=== PATIENT | male | born 1965 | race Caucasian/White ===

== ENCOUNTER 2017-10-02 14:05 | Emergency (ER) | payer BC ==
[~2017-10-02] VITALS: Ht 175.3 cm; Wt 60.0 kg
[~2017-10-02 14:05] MED LIST: CIPROFLOXACN500 MG PO; COUMADIN5 MG PO; FLUTICASONE50 MCG; LIPITOR10 M1 PO; LOPRESSOR50 M1 PO; METOPROL TAR50 MG PO
[2017-10-02] MEDS ORDERED: LORTAB 1010 MG PO (15:47)
[2017-10-02 16:05] VITALS: BP 138/80
== END 2017-10-02 16:05 | disposition home or self-care (01) | DRG 605 ==
LOC: ED 14:05
DX: S40.012A Contusion of left shoulder, initial encounter (principal); I10 Essential (primary) hypertension; F17.210 Nicotine dependence, cigarettes, uncomplicated; W11.XXXA Fall on and from ladder, initial encounter; Y92.009 Unspecified place in unspecified non-institutional (private) residence as the place of occurrence of the external cause

== ENCOUNTER 2019-12-23 | Emergency (ER) | payer OTHER ==
[~2019-12-23] MED LIST changes: +LORTAB 1010 MG PO
[2019-12-23 19:53] LABS: HEMATOCRIT 40.3 % (39.0-50.0); HEMOGLOBIN 12.9 g/dl (14.0-18.0); IMMATURE GRANULOCYTES 0.3 % (0.0-5.0); MEAN CELL VOLUME 90.6 fL CALC (80.0-100.0); NEUT# 3.55 thou/uL (1.82-7.42); RED BLOOD COUNT 4.45 mill/uL (4.70-6.10); RED CELL DISTRI WIDTH 15.8 % (11.5-15.5)
[2019-12-23 20:05] LABS: ANION GAP 14 (6-22 (CALC)); BUN 28 mg/dL (9-20); BUN/CREATININE RATIO 26 (12-20 (CALC)); CARBON DIOXIDE 28 mmol/l (22-30); CHLORIDE 99 mmol/l (95-108); CREATININE 1.1 mg/dL (0.7-1.3); GFR > 60 ML/MIN (>=60 (CALC)); GFR FOR AFR.AMER. > 60 ML/MIN (>=60 (CALC)); POTASSIUM 4.3 mmol/l (3.5-5.1); SODIUM 138 mmol/l (137-146)
--- NOTE | 2019-12-23 20:11 | NUR ---
BREATHING TREATMENT GIVEN.
[2019-12-23 20:17] LABS: ALBUMIN 4.1 g/dL (3.2-5.0); ALKALINE PHOSPHATASE 141 u/l (38-126); BILIRUBIN, TOTAL 1.6 mg/dL (0.0-1.4); INTERNATIONAL NORMALIZED RATIO 1.6 RATIO (0.7-1.3); MYOGLOBIN 61 ng/mL (0 - 121); PROTHROMBIN TIME 16.1 SECONDS (9.0-12.5); SGOT/AST 29 u/l (17-59); TOTAL PROTEIN 7.3 g/dL (6.3-8.2)
[2019-12-23] MEDS ORDERED: VENTOLIN HFA IN (20:40)
== END 2019-12-23 21:15 | disposition home or self-care (01) ==
PROVIDERS: Family Medicine
DX: J44.1 Chronic obstructive pulmonary disease with (acute) exacerbation (principal); I10 Essential (primary) hypertension; I48.91 Unspecified atrial fibrillation; F17.210 Nicotine dependence, cigarettes, uncomplicated; Z95.2 Presence of prosthetic heart valve; Z79.01 Long term (current) use of anticoagulants

== ENCOUNTER 2019-12-27 16:17 | Inpatient (IN) | payer OTHER ==
[~2019-12-27] VITALS: Ht 175.3 cm; Wt 58.4 kg
[~2019-12-27 16:17] MED LIST changes: +VENTOLIN HFA IN
--- NOTE | 2019-12-27 16:21 | NUR ---
Pt to room # 10 for bedside triage
--- NOTE | 2019-12-27 17:00 | NUR ---
PT TO ER FOR SOB THAT WORSENED FRIDAY. PT ALSO STATED HAVING ABDOMINAL PAIN, DENIES ANY N/V/D, DENIES C/P OR WEAKNESS. PT HAS CRACKLES IN LEFT LOWER LOBE, P PT IS AOX4.
[2019-12-27 17:01] LABS: HEMATOCRIT 40.6 % (39.0-50.0); HEMOGLOBIN 12.9 g/dl (14.0-18.0); IMMATURE GRANULOCYTES 0.2 % (0.0-5.0); MEAN CELL VOLUME 92.1 fL CALC (80.0-100.0); MEAN CORPUSCULAR HGB 29.3 pG CALC (26.0-32.0); MEAN CORPUSCULAR HGB CONC 31.8 g/L CALC (32.0-36.0); NEUT# 4.3 thou/uL (1.82-7.42); RED BLOOD COUNT 4.41 mill/uL (4.70-6.10); RED CELL DISTRI WIDTH 15.9 % (11.5-15.5)
[2019-12-27 17:24] LABS: ALBUMIN 4.1 g/dL (3.2-5.0); ALKALINE PHOSPHATASE 153 u/l (38-126); ANION GAP 14 (6-22 (CALC)); BILIRUBIN, TOTAL 2.1 mg/dL (0.0-1.4); BUN 20 mg/dL (9-20); BUN/CREATININE RATIO 20 (12-20 (CALC)); CARBON DIOXIDE 24 mmol/l (22-30); CHLORIDE 102 mmol/l (95-108); GFR > 60 ML/MIN (>=60 (CALC)); GFR FOR AFR.AMER. > 60 ML/MIN (>=60 (CALC)); LIPASE 44 u/l (23-300); POTASSIUM 4.7 mmol/l (3.5-5.1); SGOT/AST 29 u/l (17-59); SODIUM 136 mmol/l (137-146); TOTAL PROTEIN 7.3 g/dL (6.3-8.2)
--- NOTE | 2019-12-27 18:00 | NUR ---
PT RESTING ON STRETCHER, NO COMPLAINTS STATED AT THIS TIME.
--- NOTE | 2019-12-27 18:50 | NUR ---
REPORT GIVEN TO OLIVERIO VERA
--- NOTE | 2019-12-27 18:51 | NUR ---
RECEIVED REPORT FROM RN. KAMI.
[2019-12-27 19:05] LABS: URINE BILIRUBIN - DIPSTICK NEGATIVE (NEGATIVE); URINE BLOOD DIPSTICK TRACE-INTACT (NEGATIVE); URINE COLOR YELLOW; URINE GLUCOSE - DIPSTICK NEGATIVE (NEGATIVE); URINE KETONE NEGATIVE (NEGATIVE); URINE LEUK ESTERASE NEGATIVE (NEGATIVE); URINE NITRITE - DIPSTICK NEGATIVE (Negative); URINE PROTEIN - DIPSTICK 100 mg/dL (NEG-TRACE); URINE SPECIFIC GRAVITY >=1.030
--- NOTE | 2019-12-27 19:08 | NUR ---
DR HADDAD IN TO GO OVER RESULTS WITH PT.
[2019-12-27 19:18] LABS: URINE RBC 0-2 RBC/hpf (0-5); URINE WBC 0-2 WBC/hpf (0-5)
--- NOTE | 2019-12-27 20:05 | NUR ---
450 CC URINE OUT.
--- NOTE | 2019-12-27 20:16 | NUR ---
REPORT REC FROM Shanta AVITIA RN.
--- NOTE | 2019-12-27 20:18 | NUR ---
Admission Note Report Given to: ELIZA REDMOND Transported by: X Wheelchair Stretcher Transported with: X Nurse Transporter Patent IV O2 X Kindergarten Instructional Assistant Location: ICU X [facility]
[2019-12-27 20:26] VITALS: BP 147/84
--- NOTE | 2019-12-27 20:26 | NUR ---
PT ARRIVED TO MS VIA WC ACCOMPANIED BY SANJUANA VERA. PT A&O X3. O2 VIA NC @2L PLACED. PT EXHIBITING SLIGHT ANXIETY. PER PT HE HAS A LOT OF PERSONAL PROBLEMS GOING ON AT HOME. EXCERTIONAL SOB ALSO NOTED AFTER PT AMBULATED TO AND FROM THE BATHROOM, STEADY GAIT OBSERVED. CLEAR BREATH SOUNDS UPON AUSCULTATION. PT EXPRESSES CONCERN OF RESULTS GIVEN IN THE ED IN REGARDS TO ASCITES, PER PT HE DOES NOT CONSUME ALCOHOL NOR DOES HE HAVE A HX OF CONSUMING IT. ALSO STATES THAT HE HAS BEEN CONSUMING A LOT OF SODA BEVERAGES ALONG WITH "SWEETS" STATES HE IS GOING THROUGH A FINANCIAL SITUATION. CIAGRETTE SMOKING WENT FROM 2 PACKS/DAY TO 4 CIAGRETTS/DAY, PT ATTEMPTING TO QUIT. C/O OF 7/10 ABD PAIN WHEN HE IS IN CERTAIN POSITIONS BUT THEN IT SUBSIDES. ORIENTED PT TO ROOM. ASSESSMENT COMPLETED. CALL LIGHT IN REACH. CONTINUE TO MONITOR.
[2019-12-27 20:30] LABS: INTERNATIONAL NORMALIZED RATIO 1.3 RATIO (0.7-1.3); PROTHROMBIN TIME 13.5 SECONDS (9.0-12.5)
--- NOTE | 2019-12-28 00:05 | NUR ---
PT SITTING IN CHAIR WITH SON AT BEDSIDE. CALL LIGHT IN REACH. CONTINUE TO MONITOR
[2019-12-28 04:54] VITALS: BP 136/89
[2019-12-28 06:35] LABS: HEMATOCRIT 40.8 % (39.0-50.0); HEMOGLOBIN 13.1 g/dl (14.0-18.0); MEAN CELL VOLUME 90.5 fL CALC (80.0-100.0); MEAN CORPUSCULAR HGB CONC 32.1 g/L CALC (32.0-36.0); RED BLOOD COUNT 4.51 mill/uL (4.70-6.10); RED CELL DISTRI WIDTH 15.9 % (11.5-15.5)
[2019-12-28 06:49] LABS: INTERNATIONAL NORMALIZED RATIO 1.5 RATIO (0.7-1.3); PROTHROMBIN TIME 15.6 SECONDS (9.0-12.5)
[2019-12-28 06:53] LABS: ANION GAP 14 (6-22 (CALC)); BUN 24 mg/dL (9-20); BUN/CREATININE RATIO 20 (12-20 (CALC)); CARBON DIOXIDE 28 mmol/l (22-30); CHLORIDE 99 mmol/l (95-108); CHOLESTEROL HDL RATIO 9.7 (<4.4 (CALC)); CREATININE 1.2 mg/dL (0.7-1.3); GFR > 60 ML/MIN (>=60 (CALC)); GFR FOR AFR.AMER. > 60 ML/MIN (>=60 (CALC)); MAGNESIUM 2.1 mg/dL (1.6-2.3); POTASSIUM 4.6 mmol/l (3.5-5.1); SODIUM 136 mmol/l (137-146)
--- NOTE | 2019-12-28 07:10 | NUR ---
REPORT RECEIVED FROM ELIZA STEIN;PT OOB RESTING IN RECLINER WITH FAMILY MEMBER AT BEDSIDE;INTRODUCED SELF TO PT AND POC DISCUSSED;RESPIRATIONS SHALLOW ON RA,ENCOURAGED O2 USE BUT PT REFUSES AT THIS TIME;PT DENIES ANY CURRENT PAIN OR DISCOMFORTS;TELE MONITORING IN PLACE;ENCOURAGED PT TO CALL FOR ASSISTANCE IF NEEDED;FALL PRECAUTIONS IN PLACE WITH CALL LIGHT IN REACH;WILL CONTINUE TO MONITOR
--- NOTE | 2019-12-28 09:05 | NUR ---
PT RESTING AT BEDSIDE,A&O X3;VS OBTAINED AND ASSESSMENT COMPLETED;PT DENIES ANY CURRENT PAIN OR DISCOMFORTS,PAIN SCALE AND REPORTING EDUCATED;RESPIRATIONS SHALLOW ON O2 @ 2L VIA NC,NON-PRODUCTIVE COUGH NOTED AT TIMES;ABDOMEN SOFT ON PALPATION AND ACTIVE IN ALL 4 QUADRANTS;WEAK PEDAL PULSES;SKIN INTACT;TELE MONITORING IN PLACE;#20G TO RAC FLUSHED AND PATENT,SITE APPEARS HEALTHY;PT DENIES ANY ADDITIONAL NEEDS AT THIS TIME AND IS ENCOURAGED TO CALL FOR ASSISTANCE IF NEEDED;FALL PRECAUTIONS IN PLACE WITH CALL LIGHT IN REACH;WILL CONTINUE TO MONITOR
[2019-12-28 09:07] VITALS: BP 129/85
[2019-12-28 11:22] VITALS: BP 128/82
--- NOTE | 2019-12-28 12:40 | NUR ---
PT RESTING IN SEMI FOWLERS POSITION;RESPIRATIONS REMAIN SHALLOW ON O2 @ 2L VIA NC;PT DENIES ANY CURRENT PAIN OR NEEDS;TELE MONITORING IN PLACE;IV SITE PATENT;PT DENIES ANY ADDITIONAL NEEDS AT THIS TIME;ASSESSMENT REMAINS UNCHANGED;PT ENCOURAGED TO CALL FOR ASSISTANCE IF NEEDED;CALL LIGHT IN REACH;WILL CONTINUE TO MONITOR
--- NOTE | 2019-12-28 16:20 | NUR ---
PT RESTING IN SEMI FOWLERS POSITION WITH FAMILY AT BEDSIDE;RESPIRATIONS EVEN AND UNLABORED ON O2 @ 2L VIA NC;PT DENIES ANY CURRENT PAIN OR NEEDS BUT DOES REPORT INTERMITTENT LEG CRAMPS FROM TIME TO TIME;IV SITE PATENT;TELE MONITORING IN PLACE;PT DENIES ANY ADDITIONAL NEEDS AND IS ENCOURAGED TO CALL FOR ASSISTANCE IF NEEDED;CALL LIGHT IN REACH;WILL CONTINUE TO MONITOR
[2019-12-28 16:40] VITALS: BP 143/82
--- NOTE | 2019-12-28 19:06 | NUR ---
REPORT RECEIVED FROM ELIZA SUE. PT SITTING ON THE SIDE OF THE BED. NO S/S OF DISTRESS.
[2019-12-28 19:45] VITALS: BP 136/79
--- NOTE | 2019-12-28 21:15 | NUR ---
PT SITTING ON THE SIDE OF THE BED, ALERT AND ORIENTED. PT SOB, LUNGS SOUND CLEAR DIMINISHED. PEDAL PULSES WEAK. PT DENIES ANY PAIN OR DISCOMFORT AT THIS TIME. PT PROVIDED WITH APPLE JUICE PER REQUEST. SAFETY PRECAUTIONS IN PLACE. WILL CONTINUE TO MONITOR.
[2019-12-29] VITALS (7 sets, daily range): BP systolic 100–139; BP diastolic 58–84
--- NOTE | 2019-12-29 00:12 | NUR ---
PT RESTING IN BED. NO S/S OF DISTRESS AT THIS TIME SAFETY PRECAUTIONS IN PLACE.
--- NOTE | 2019-12-29 03:47 | NUR ---
PT RESTING IN BED. RESPIRATIONS SHALLOW ON O2 @ 2L VIA NC. SAFETY PRECAUTIONS IN PLACE. WILL CONTINUE TO MONITOR.
[2019-12-29 05:43] LABS: HEMOGLOBIN 12.4 g/dl (14.0-18.0); MEAN CELL VOLUME 91.5 fL CALC (80.0-100.0); MEAN CORPUSCULAR HGB 29.1 pG CALC (26.0-32.0); MEAN CORPUSCULAR HGB CONC 31.8 g/L CALC (32.0-36.0); RED BLOOD COUNT 4.26 mill/uL (4.70-6.10); RED CELL DISTRI WIDTH 15.8 % (11.5-15.5)
[2019-12-29 05:57] LABS: INTERNATIONAL NORMALIZED RATIO 1.3 RATIO (0.7-1.3); PROTHROMBIN TIME 13.7 SECONDS (9.0-12.5)
[2019-12-29 06:02] LABS: ANION GAP 15 (6-22 (CALC)); BUN 28 mg/dL (9-20); BUN/CREATININE RATIO 24 (12-20 (CALC)); CARBON DIOXIDE 29 mmol/l (22-30); CHLORIDE 98 mmol/l (95-108); CREATININE 1.2 mg/dL (0.7-1.3); GFR > 60 ML/MIN (>=60 (CALC)); GFR FOR AFR.AMER. > 60 ML/MIN (>=60 (CALC)); POTASSIUM 4.1 mmol/l (3.5-5.1); SODIUM 137 mmol/l (137-146)
--- NOTE | 2019-12-29 07:10 | NUR ---
REPORT RECEIVED FROM RODRN;PT RESTING AT BEDSIDE WITH SON AT SIDE;INTRODUCED SELF TO PT AND POC DISCUSSED;RESPIRATIONS EVEN AND UNLABORED ON O2 @ 2L VIA NC;TELE MONITORING IN PLACE;IV SITE INTACT;PT DENIES ANY ADDITIONAL NEEDS AT THIS TIME AND IS ENCOURAGED TO CALL FOR ASSISTANCE IF NEEDED;FALL PRECAUTIONS IN PLACE WITH BED IN THE LOWEST POSITION AND CALL LIGHT IN REACH;WILL CONTINUE TO MONITOR
--- NOTE | 2019-12-29 09:20 | NUR ---
PT RESTING IN SEMI FOWLERS POSITION,A&O X3;VS OBTAINED AND ASSESSMENT COMPLETED;PT DENIES ANY CURRENT PAIN OR DISCOMFORTS,PAIN SCALE AND REPORTING EDUCATED;RESPIRATIONS SHALLOW ON O2 @ 2L VIA NC, PT NEEDS FREQUENT REINFORCEMENT TO KEEP OXYGEN ON HE IS NO DEPENDENT AT HOME;CLEAR LUNG SOUNDS;ABDOMEN SOFT ON PALPATION AND ACTIVE IN ALL 4 QUADRANTS;STRONG PEDAL PULSES;SKIN INTACT;TELE MONITORING IN PLACE;#20G TO RAC FLUSHED AND PATENT,SITE APPEARS HEALTHY;PT DENIES ANY ADDITIONAL NEEDS AT THIS TIME AND IS ENCOURAGED TO CALL FOR ASSISTANCE IF NEEDED;CALL LIGHT IN REACH;WILL CONTINUE TO MONITOR
--- NOTE | 2019-12-29 11:40 | NUR ---
PT RESTING AT BEDSIDE EATING LUNCH WITH SON AT BEDSIDE;RESPIRATIONS REMAIN SHALLOW ON O2 @ 2L VIA NC;PT DENIES ANY CURRENT PAIN OR NEEDS;TELE MONITORING IN PLACE;ASSESSMENT REMAINS UNCHANGED AT THIS TIME;PT ENCOURAGED TO CALL FOR ASSISTANCE IF NEEDED;CALL LIGHT IN REACH;WILL CONTINUE TO MONITOR
--- NOTE | 2019-12-29 15:30 | NUR ---
PT RESTING AT BEDSIDE WITH SON AT SIDE;RESPIRATIONS REMAIN SHALLOW ON O2 @ 2L VIA NC;PT DENIES ANY CURRENT PAIN OR DISCOMFORTS;TELE MONITORING IN PLACE;IV SITE PATENT;PT DENIES ANY CURRENT PAIN OR NEEDS;ENCOURAGED TO CALL FOR ASSISTANCE IF NEEDED;CALL LIGHT IN REACH;WILL CONTINUE TO MONITOR
--- NOTE | 2019-12-29 19:12 | NUR ---
PT SLEEPING, ROOM IS DARK, NO S/O DISTRESS AT THIS TIME. CALL LIGHT W/IN REACH.
--- NOTE | 2019-12-29 20:30 | NUR ---
PT MEDICATED ORDERS PROVIDE AND ASSESSMENT COMPLETED AT THIS TIME. PT REPORTS BM THIS DAY NORMAL, DENIED DIFFICULTY URINATING, LUNG SOUNDS ARE CLEAR, ABD ACTIVE BOWEL SOUNDS/NON-TENDER. SKIN IS INTACT. PT LOCX4. PT REQUESTED APPLEJUICE/PROVIDED AND WATER PO. PT REPORTS FREQUENT URINATION AND MUSCLE CRAMPING IN RESPONSE TO LASIX BEING ADMINISTERED EARLIER TODAY. DENIES ANY NEEDS OR DISTRESS AT THIS TIME. PT WAS SLEEPING I ENTERED THE ROOM, BUT AWOKE TO MY VOICE AND RECEIVED TWO PHONE CALLS I WAS IN THE ROOM.
--- NOTE | 2019-12-29 22:29 | NUR ---
PT MEDICATED ORDERS PROVIDE. PT DENIES ANY OTHER NEEDS. SON IS AT BEDSIDE AND HAS BEEN PROVIDED ROLL-AWAY BED TO STAY. BEDDING PROVIDED. BOTH DENY ANY OTHER NEEDS AT THIS TIME
--- NOTE | 2019-12-30 | NUR ---
PT'S SON CAME OUT TO STATE THAT HIS DAD WANTED HIM TO ORDER PIZZA. FAMILY X2 ARE AT BEDSIDE. FAMILY MEMBER IS ASKING FOR ICE AND CUPS. PT DOES NOT SHOW ANY KIND OF DISTRESS AT THIS TIME.
[2019-12-30 03:43] VITALS: BP 116/74
--- NOTE | 2019-12-30 03:48 | NUR ---
AIDE IN TO SEE PT FOR V/S, LAB FOR LAB DRAW AND WE ASKED PT TO AMBULATE FOR DAILY WEIGHT, PT BECAME ANGRY AND BECAME BILIGERANT REGARDING HAVING TO GET UP FOR WEIGHT, LEATHER LEVELER INFORMED PT THAT HE DID NOT HAVE TO GET UP AT THIS TIME IF HE WOULD PREFER NOT TO, BUT HE THREW HIS CALL LIGHT OUT OF THE WAY AND PROCEEDED TO GET UP TO STANDING SCALE. PT PROCEEDED TO RETURN TO BED APOLOGIZING SEVERAL TIMES PRIOR TO US LEAVING ROOM.
[2019-12-30 05:42] LABS: INTERNATIONAL NORMALIZED RATIO 1.5 RATIO (0.7-1.3); PROTHROMBIN TIME 15.1 SECONDS (9.0-12.5)
[2019-12-30 06:03] LABS: ANION GAP 13 (6-22 (CALC)); BUN 27 mg/dL (9-20); BUN/CREATININE RATIO 25 (12-20 (CALC)); CARBON DIOXIDE 28 mmol/l (22-30); CHLORIDE 97 mmol/l (95-108); CREATININE 1.1 mg/dL (0.7-1.3); GFR > 60 ML/MIN (>=60 (CALC)); GFR FOR AFR.AMER. > 60 ML/MIN (>=60 (CALC)); POTASSIUM 3.6 mmol/l (3.5-5.1); SODIUM 135 mmol/l (137-146)
[2019-12-30 07:40] VITALS: BP 115/69
--- NOTE | 2019-12-30 07:40 | NUR ---
ASSESSMENT IS COMPLTED: IV SITE IS FREE FROM REDNESS OR EDEMA. HR IS REG,PULSES ARE STRONG X4, ABD IS SOFT WITH ACTIVE BS, BREATH SOUNDS ARE CLEAR BILATERALLY. TELE MONITOR IN PLACE. CONTINEU TO OBSERVE AND MONITOR.
[2019-12-30 11:22] VITALS: BP 119/69
--- NOTE | 2019-12-30 12:30 | NUR ---
PT WENT DOWN FOR TESTING. ON ECHO. PT TOLERATED WELL. NO DISTRESS NOTED. IV SITE IS FREE FROM REDNESS OR EDEMA.
[2019-12-30 16:10] VITALS: BP 131/70
[2019-12-30 18:36] VITALS: BP 120/67
--- NOTE | 2019-12-30 20:42 | NUR ---
PT MEDICATED AND ASSESSMENT COMPLETED AT THIS TIME. PT SITTING IN RECLINER WATCHING TV. SON IS AT BEDSIDE, BROUGHT PT POPSICLE AND ICECREAM. PT DENIES ANY OTHER NEEDS AT THIS TIME.
--- NOTE | 2019-12-30 23:15 | NUR ---
ICE AND DRINKS PROVIDED TO SON AND PT
[2019-12-31 00:06] VITALS: BP 125/77
--- NOTE | 2019-12-31 00:45 | NUR ---
PT SON ASKING FOR PT'S FROZEN FOOD FROM [employer]/PROVIDED. I INFORMED SON THAT WE HAD NOISE COMPLAINT FROM PT'S NEXTDOOR AND THAT THEY NEEDED TO KEEP NOISE DOWN NOW THAT IT WAS QUIET TIME IN THE HOSPITAL. HE VOICED UNDERSTANDING.
[2019-12-31 04:00] VITALS: BP 119/78
[2019-12-31 06:09] LABS: INTERNATIONAL NORMALIZED RATIO 2.3 RATIO (0.7-1.3); PROTHROMBIN TIME 23.4 SECONDS (9.0-12.5)
[2019-12-31 07:51] VITALS: BP 117/69
--- NOTE | 2019-12-31 08:20 | NUR ---
CALLED JEAN-PIERRE AT DR. TYSON OFFICE GAVE HER INFORMATION REGARDING CONSULTATION. STATED SHE WILL GIVE GALLITO THE INFORMATION BECAUSE DR. TYSON IS NOT HERE ON FRIDAYS.
--- NOTE | 2019-12-31 09:00 | NUR ---
PT SEEN AWAKE, ALERT, ORIENTED. LUNGS CLEAR, RA/2LPM NEEDED. PT COMPLAINS THAT HE STILL IS SHORT OF BREATH WITH MINIMAL EXERTION. SON AT BEDSIDE.
[2019-12-31 11:53] VITALS: BP 127/86
--- NOTE | 2019-12-31 14:00 | NUR ---
PT CALLED TO SAY THAT HE WANTED TO GO OUTSIDE AND WALK AROUND WITH HIS SON. PT COULD NOT BE TALKED INTO WALKING IN THE HALLWAY INSTEAD. PT RETURNED HALF HOUR LATER, ALONG WITH HIS SON AND MOTHER.
[2019-12-31 14:37] VITALS: BP 106/68
--- NOTE | 2019-12-31 18:27 | NUR ---
PT CONTINUES WITHOUT COMPLAINT OR EVIDENCE OF DISTRESS. VISITORS AT BEDSIDE INTERMITTENTLY TODAY.
[2019-12-31 19:06] VITALS: BP 107/75
--- NOTE | 2019-12-31 19:36 | NUR ---
CHANGE OF SHIFT REPORT RECEIVED FROM CHUY VALENTIN. PATIENT DENIES ANY NEEDS. TOOL POLISHING MACHINE OPERATOR WILL CONTINUE TO MONITOR
--- NOTE | 2020-01-01 | NUR ---
PATIENT WENT INTO SHOWER WITH TELE BOX. PATIENT EDUCATED ON KEEPING TELEBOX DRY. PATIENT ADVISED TO REQUEST SHIFT SUPERVISOR MELTING NEXT TIME THAT PT WANTS TO GET INTO THE SHOWER. ER DEPT NOTIFIED. NEW TELE PUT ON PATIENT.
[2020-01-01 00:19] VITALS: BP 118/67
[2020-01-01 04:49] VITALS: BP 115/68
--- NOTE | 2020-01-01 05:22 | NUR ---
PT STATES THAT HE PULLED OUT IV BY MISTAKE. SITE HEALTHY AND INTACT. AGENTS' RECORDS CLERK ATTEMPTED TO INSERT NEW IV X 1. PT TOO SLEEPY, MOVING ARM. AGENTS' RECORDS CLERK WILL ADVICE AM NURSE TO REINSERT IV WHEN PT IS MORE AWAKE
[2020-01-01 05:55] LABS: HEMATOCRIT 38.6 % (39.0-50.0); HEMOGLOBIN 12.2 g/dl (14.0-18.0); MEAN CELL VOLUME 91.5 fL CALC (80.0-100.0); MEAN CORPUSCULAR HGB 28.9 pG CALC (26.0-32.0); MEAN CORPUSCULAR HGB CONC 31.6 g/L CALC (32.0-36.0); RED BLOOD COUNT 4.22 mill/uL (4.70-6.10); RED CELL DISTRI WIDTH 15.5 % (11.5-15.5)
[2020-01-01 06:09] LABS: INTERNATIONAL NORMALIZED RATIO 2.8 RATIO (0.7-1.3); PROTHROMBIN TIME 27.8 SECONDS (9.0-12.5)
[2020-01-01 06:22] LABS: ANION GAP 14 (6-22 (CALC)); BUN 27 mg/dL (9-20); BUN/CREATININE RATIO 25 (12-20 (CALC)); CARBON DIOXIDE 27 mmol/l (22-30); CHLORIDE 97 mmol/l (95-108); CREATININE 1.1 mg/dL (0.7-1.3); GFR > 60 ML/MIN (>=60 (CALC)); GFR FOR AFR.AMER. > 60 ML/MIN (>=60 (CALC)); MAGNESIUM 2.1 mg/dL (1.6-2.3); POTASSIUM 4.1 mmol/l (3.5-5.1); SODIUM 135 mmol/l (137-146)
[2020-01-01 08:00] VITALS: BP 121/71
--- NOTE | 2020-01-01 09:00 | NUR ---
PT SEEN SITTING UP IN THE BED, FEET DANGLING. NO SHORTNESS OF BREATH NOTED, NO DISTRESS. SON IN ROOM.
[2020-01-01 11:00] VITALS: BP 107/65
--- NOTE | 2020-01-01 12:39 | NUR ---
PT SITTING UP IN BED WITH SON AT BEDSIDE, NO COMPLAINT OR EVIDENCE OF DISTRESS.
[2020-01-01 15:30] VITALS: BP 121/63
--- NOTE | 2020-01-01 16:16 | NUR ---
PT HAS HAD QUIET DAY TODAY THUS FAR, SEEN RESTING IN THE BED OR DANGLING OFTEN. NO COMPLAINTS, NO REQUESTS.
--- NOTE | 2020-01-01 19:30 | NUR ---
PT. SITTING UP ON THE SIDE OF THE BED; NO DISTRESS NOTED; DENIES NEEDS/PAIN. TELEMETRY IN PLACE.ASSESSMENT COMPLETED; PT. IS ON RA; NO RESP. DISTRESS NOTED; ENCOURAGED TO CALL FOR ANY NEEDS. UPDATED ON POC. CALL LIGHT IS IN REACH. WILL CONTINUE TO MONTIOR.
[2020-01-01 19:32] VITALS: BP 113/67
--- NOTE | 2020-01-01 23:38 | NUR ---
PT. SITTING UP ON THE SIDE OF THE BED WITH NO DISTRESS NOTED. DENIES PAIN. ICE PROVIDED. CALL LIGHT IS IN REACH.
[2020-01-02 00:14] VITALS: BP 98/54
--- NOTE | 2020-01-02 01:54 | NUR ---
PT. UP TO THE BATHROOM AND DENIES NEEDS; VOICES NO CONCERNS. WILL CONTINUE TO MONITOR.
[2020-01-02 04:35] VITALS: BP 110/61
[2020-01-02 05:47] LABS: INTERNATIONAL NORMALIZED RATIO 2.8 RATIO (0.7-1.3); PROTHROMBIN TIME 28.1 SECONDS (9.0-12.5)
[2020-01-02 07:36] VITALS: BP 104/74
--- NOTE | 2020-01-02 09:53 | NUR ---
PT ALERT AND ORIENTED X 3, APPEARS TIRED TODAY. LUNGS CLEAR, RA. MECHANICAL VALVE HEARD UPON AUSCULTATION. NO DISTRESS, RESTS IN THE BED.
--- NOTE | 2020-01-02 12:00 | NUR ---
REPORT RECEIVED FROM EVANGELISTA VALENTIN SITTING ON SIDE OF BED WITH HEAD DOWN ON BEDSIDE TABLE, PT STATES HE IS FINE, VOICES NO NEEDS OR COMPLAINTS AT THIS TIME. CALL LIGHT IN REACH,CONTINUE TO MONITOR.
[2020-01-02 12:09] VITALS: BP 111/68
--- NOTE | 2020-01-02 15:08 | NUR ---
PT SITTING IN BED WATCHING TV, REQUESTING COFFEE, FRESH COFFEE PROVIDED. PT VOICES NO NEEDS OR COMPLAINTS AT THIS TIME, CALL LIGHT IN REACH,CONTINUE TO MONITOR.
[2020-01-02 19:32] VITALS: BP 104/64
--- NOTE | 2020-01-02 19:33 | NUR ---
ASSESSMENT COMPLETED. UPDATED ON POC. VOICES NO CONERNS; CALL LIGHT IS IN REACH. WILL CONTINUE TO MONITOR.
--- NOTE | 2020-01-02 23:30 | NUR ---
RESTING IN BED ON LEFT SIDE WITH EYES CLOSED; RESP. EVEN AND UNLABORED. CALL LIGHT IS IN REACH.
[2020-01-03] VITALS (7 sets, daily range): BP systolic 104–136; BP diastolic 54–80
--- NOTE | 2020-01-03 04:00 | NUR ---
RESTING IN BED WITH NO DISTRESS NOTED; DENIES NEEDS CALL LIGHT IS IN REACH.
[2020-01-03 05:14] LABS: HEMATOCRIT 36.6 % (39.0-50.0); HEMOGLOBIN 11.6 g/dl (14.0-18.0); MEAN CELL VOLUME 91.5 fL CALC (80.0-100.0); MEAN CORPUSCULAR HGB CONC 31.7 g/L CALC (32.0-36.0); RED CELL DISTRI WIDTH 15.4 % (11.5-15.5)
[2020-01-03 05:25] LABS: PROTHROMBIN TIME 30.1 SECONDS (9.0-12.5)
[2020-01-03 05:31] LABS: ANION GAP 11 (6-22 (CALC)); BUN 26 mg/dL (9-20); BUN/CREATININE RATIO 27 (12-20 (CALC)); CARBON DIOXIDE 30 mmol/l (22-30); CHLORIDE 98 mmol/l (95-108); GFR > 60 ML/MIN (>=60 (CALC)); GFR FOR AFR.AMER. > 60 ML/MIN (>=60 (CALC)); POTASSIUM 4.5 mmol/l (3.5-5.1); SODIUM 135 mmol/l (137-146)
--- NOTE | 2020-01-03 07:10 | NUR ---
REPORT RECEIVED FROM CHUY SHERIDAN. PT SITTING UP ON EDGE OF BED WITH HEAD DOWN AND SEEMS RELUCTANT TO LOOK UP OR ANSWER QUESTIONS; APPEARS SLIGHTLY ANXIOUS. STATES THAT HE IS JUST READY TO GO HOME. FLAT AFFECT; ORIENTED X [address] DENIES PAIN. RESPIRATIONS EVEN AND UNLABORED ON ROOM AIR. LUNGS CLEAR; HEART SOUND LOUD WITH CLICK. PLAN OF CARE REVIEWED. PT ENCOURAGED TO VERBALIZE CONCERNS. STATES UNDERSTANDING. SAFETY MEASURES IN PLACE. CALL LIGHT WITHIN REACH.
--- NOTE | 2020-01-03 09:58 | NUR ---
AMBULATING IN HALLWAYS AND TALKING ON CELL PHONE. REQUESTED COFFEE.
--- NOTE | 2020-01-03 11:50 | NUR ---
I SPOKE WITH JEAN-PIERRE FROM DR.ALTAJARS FRAZIER OFFICE @1144 AM ABOUT THE CONSULTATION ORDERED FOR CHF. #[phone]
--- NOTE | 2020-01-03 13:12 | NUR ---
PT SITTING UP ON BEDSIDE COUGH WITH NO REQUESTS OR CONCERNS. RESPIRATIONS EVEN AND UNLABORED. CONTINUES TO DENY PAIN. INDEPENDENT IN ROOM.
--- NOTE | 2020-01-03 17:23 | NUR ---
MOTHER AT BEDSIDE. NO REQUESTS OR CONCERNS. IV SITE APPEARS HEALTHY AND FLUSHES.
--- NOTE | 2020-01-03 19:32 | NUR ---
PT. SITTING UP IN THE BED WITH NO DISTRESS NOTED; UPDATED ON POC. ENCOURAGED AMBULATION. IV SITE PATENT AND SL. PO FLUIDS OFFERED. ASSESSMENT COMPLETED. CALL LIGHT IS IN REACH. WILL CONTINUE TO MONITOR.
--- NOTE | 2020-01-03 23:49 | NUR ---
PT. SITTING UP ON THE SIDE OF THE BED PLAYING GAME ON PHONE. NO DISTRESS NOTED. PT. IS REMINDED TO USE URINAL FOR ALL VOIDS AND VERBALIZES UNDERSTANDING. SNACK PROVIDED. CALL LIGHT IS IN REACH.
--- NOTE | 2020-01-04 02:04 | NUR ---
PT. RESTING IN BED WITH NO DISTRESS NOTED; URINAL EMPTIED. CALL LIGHT IS IN REACH.
[2020-01-04 03:27] VITALS: BP 120/73
[2020-01-04 05:01] LABS: PROTHROMBIN TIME 29.9 SECONDS (9.0-12.5)
--- NOTE | 2020-01-04 05:40 | NUR ---
RESTING IN BED WITH EYES CLOSED ON RIGHT SIDE. NO DISTRESS NOTED; CALL LIGHT IS IN REACH.
[2020-01-04 08:00] VITALS: BP 113/74; BP 161/85
[2020-01-04 10:56] VITALS: BP 127/71
[2020-01-04 15:09] VITALS: BP 124/68
[2020-01-04 15:21] LABS: INTERNATIONAL NORMALIZED RATIO 3.1 RATIO (0.7-1.3); PROTHROMBIN TIME 31.2 SECONDS (9.0-12.5)
--- NOTE | 2020-01-04 19:00 | NUR ---
RECEIVED REPORT FROM DAY NURSE, PATIENT APPEARS TO BE SLEEPING WITH EYES CLOSED, FAMILY IN ROOM CALL LIGHT AT REACH.
[2020-01-04 19:07] VITALS: BP 105/60
--- NOTE | 2020-01-04 20:00 | NUR ---
PATIENT ALERT ORIENTED ABLE TO MAKE NEEDS KNOWN, WITH SALINE LOCK ON RFA PATENCT FLUSHES WELL REMAINS ON TELE, LBM 01/03, DENIES PAIN OR DISCOMFORTS CALL LIGHT AT REACH.
--- NOTE | 2020-01-04 21:17 | NUR ---
PATIENT SON ASK IF PATIENT CAN GO OUTSIDE, STATED PATIENT NEEDS NO BREATH FRESH AIR, CALLED [employer] FINISHER AND STATED OK TO GO BUT NEEDS TO GET SCREENED TO GO BACK, SON SAID OK.
--- NOTE | 2020-01-04 21:30 | NUR ---
PATIENT WALKING ON THE HALLWAY TOGETHER WITH SON.
--- NOTE | 2020-01-04 22:10 | NUR ---
CALLED SECURITY TO CHECK PATIENT OUTSIDE,
--- NOTE | 2020-01-04 23:00 | NUR ---
SECURITY WAS ABLE TO LOCATE PATIENT AT PARKING LOT TOGETHER WITH THE SON.
--- NOTE | 2020-01-04 23:15 | NUR ---
PATIENT BACK AT [facility] FLOOR, AMBULATORY, ASSISTED BACK IN BED V/S TAKEN AND RECORDED.
[2020-01-05] VITALS: BP 120/67
--- NOTE | 2020-01-05 01:27 | NUR ---
PATIENT RESTING IN BED WITH EYS CLOSED, EVEN UNLABORED BREATHING CALL LIGHTA T REACH.
[2020-01-05 04:00] VITALS: BP 111/76
[2020-01-05 04:58] LABS: HEMATOCRIT 39.1 % (39.0-50.0); HEMOGLOBIN 12.5 g/dl (14.0-18.0); MEAN CORPUSCULAR HGB 29.4 pG CALC (26.0-32.0); RED BLOOD COUNT 4.25 mill/uL (4.70-6.10); RED CELL DISTRI WIDTH 15.5 % (11.5-15.5)
[2020-01-05 05:14] LABS: INTERNATIONAL NORMALIZED RATIO 3.6 RATIO (0.7-1.3); PROTHROMBIN TIME 35.3 SECONDS (9.0-12.5)
[2020-01-05 05:17] LABS: ANION GAP 13 (6-22 (CALC)); BUN 28 mg/dL (9-20); BUN/CREATININE RATIO 25 (12-20 (CALC)); CARBON DIOXIDE 31 mmol/l (22-30); CHLORIDE 95 mmol/l (95-108); CREATININE 1.1 mg/dL (0.7-1.3); GFR > 60 ML/MIN (>=60 (CALC)); GFR FOR AFR.AMER. > 60 ML/MIN (>=60 (CALC)); MAGNESIUM 2.2 mg/dL (1.6-2.3); POTASSIUM 4.8 mmol/l (3.5-5.1); SODIUM 135 mmol/l (137-146)
[2020-01-05 08:00] VITALS: BP 121/78
[2020-01-05 11:36] VITALS: BP 118/57
--- NOTE | 2020-01-05 14:11 | NUR ---
1411-Pt niclaritza Stubbs called her return call back number is . She provided the private code for the patient. She would like to be present before her uncle is discharged so she can explain the vest to her uncle because he is concerned that he will not understand how to use it. I took her number and provided it to CHUY Ta as I may not be here when pt. is d/c'd.
[2020-01-05] MEDS ORDERED: COUMADIN5 MG PO (15:09)
[2020-01-05] MEDS ORDERED: ADLT ASA LOW81 MG PO (15:10)
[2020-01-05] MEDS ORDERED: LISINOPRIL2.5 MG PO (15:10)
[2020-01-05] MEDS ORDERED: LASIX 40 MG TAB40 MG PO (15:10)
[2020-01-05] MEDS ORDERED: CARVEDILOL3.125 MG PO (15:10)
== END 2020-01-05 18:30 | disposition home health service (06) | DRG 292 ==
LOC: ED 16:17 → ED-I 19:03 → ED 19:18 → MS2 19:19
PROVIDERS: Family Medicine; Nurse Practitioner Family; ADMIT Internal Medicine; ATTEND Internal Medicine
DX: I11.0 Hypertensive heart disease with heart failure (principal); J44.1 Chronic obstructive pulmonary disease with (acute) exacerbation; I50.23 Acute on chronic systolic (congestive) heart failure; I48.91 Unspecified atrial fibrillation; I27.20 Pulmonary hypertension, unspecified; I34.0 Nonrheumatic mitral (valve) insufficiency; E78.5 Hyperlipidemia, unspecified; T45.516A Underdosing of anticoagulants, initial encounter; I25.2 Old myocardial infarction; F17.210 Nicotine dependence, cigarettes, uncomplicated; G31.84 Mild cognitive impairment of uncertain or unknown etiology; Z86.73 Personal history of transient ischemic attack (TIA), and cerebral infarction without residual deficits; Z79.01 Long term (current) use of anticoagulants; Z91.11 Patient's noncompliance with dietary regimen; Z95.2 Presence of prosthetic heart valve; Z91.120 Patient's intentional underdosing of medication regimen due to financial hardship
CPT/HCPCS: J1650; Q9967

== ENCOUNTER 2020-02-01 | Emergency (ER) | payer OTHER ==
[2020-02-01] VITALS (8 sets, daily range): BP systolic 100–124; BP diastolic 55–60
[~2020-02-01] MED LIST changes: +ADLT ASA LOW81 MG PO; +CARVEDILOL3.125 MG PO; +LASIX 40 MG TAB40 MG PO; +LISINOPRIL2.5 MG PO
[2020-02-01 10:17] LABS: IMMATURE GRANULOCYTES 1.1 % (0.0-5.0); MEAN CELL VOLUME 92.2 fL CALC (80.0-100.0); MEAN CORPUSCULAR HGB 29.1 pG CALC (26.0-32.0); MEAN CORPUSCULAR HGB CONC 31.5 g/dL CAL (32.0-36.0); NEUT# 9.9 thou/uL (1.82-7.42); RED BLOOD COUNT 1.41 mill/uL (4.70-6.10); RED CELL DISTRI WIDTH 17.5 % (11.5-15.5)
[2020-02-01 10:35] LABS: ALBUMIN 3.3 g/dL (3.2-5.0); ALKALINE PHOSPHATASE 121 u/l (38-126); ANION GAP 14 (6-22 (CALC)); BILIRUBIN, TOTAL 0.3 mg/dL (0.0-1.4); BUN 45 mg/dL (9-20); BUN/CREATININE RATIO 45 (12-20 (CALC)); CARBON DIOXIDE 27 mmol/l (22-30); CHLORIDE 94 mmol/l (95-108); GFR > 60 ML/MIN (>=60 (CALC)); GFR FOR AFR.AMER. > 60 ML/MIN (>=60 (CALC)); POTASSIUM 3.8 mmol/l (3.5-5.1); SGOT/AST 21 u/l (17-59); SODIUM 131 mmol/l (137-146); TOTAL PROTEIN 6.2 g/dL (6.3-8.2)
[2020-02-01 10:42] LABS: HEMOGLOBIN 4.1 g/dl (14.0-18.0)
[2020-02-01 10:58] LABS: PROTHROMBIN TIME 117.1 SECONDS (9.0-12.5)
--- NOTE | 2020-02-04 08:18 | NUR ---
Covid results (negative) faxed to [facility] at [phone]. Spoke to Monica at [facility] [phone]. Patient is not on that unit, but [facility] has spoken to and faxed the result to the patient's current nurse.
== END 2020-02-01 13:15 | disposition short-term general hospital (02) ==
PROVIDERS: Family Medicine
DX: I11.0 Hypertensive heart disease with heart failure (principal); I50.23 Acute on chronic systolic (congestive) heart failure; J11.1 Influenza due to unidentified influenza virus with other respiratory manifestations; D64.9 Anemia, unspecified; R79.1 Abnormal coagulation profile; T45.515A Adverse effect of anticoagulants, initial encounter; I48.91 Unspecified atrial fibrillation; Z86.73 Personal history of transient ischemic attack (TIA), and cerebral infarction without residual deficits; F17.210 Nicotine dependence, cigarettes, uncomplicated; Z79.01 Long term (current) use of anticoagulants; Z95.2 Presence of prosthetic heart valve; Z20.828 Contact with and (suspected) exposure to other viral communicable diseases
CPT/HCPCS: P9016

== ENCOUNTER 2020-11-05 14:35 | Emergency (ER) | payer OTHER ==
[~2020-11-05] VITALS: Ht 175.3 cm; Wt 63.5 kg
[2020-11-05] MEDS ORDERED: SPIRONOLACTONE25 MG PO (15:29)
[2020-11-05] MEDS ORDERED: FLEXERIL5 M1 PO (16:42)
[2020-11-05] MEDS ORDERED: ULTRAM50 MG PO (16:42)
[2020-11-05] MEDS ORDERED: MEDDOSEPAK PO (16:42)
[2020-11-05 16:45] VITALS: BP 144/79
== END 2020-11-05 16:52 | disposition home or self-care (01) ==
LOC: ED 14:35
DX: S39.012A Strain of muscle, fascia and tendon of lower back, initial encounter (principal); M54.42 Lumbago with sciatica, left side; I10 Essential (primary) hypertension; I48.91 Unspecified atrial fibrillation; Z86.73 Personal history of transient ischemic attack (TIA), and cerebral infarction without residual deficits; Z95.2 Presence of prosthetic heart valve; X50.0XXA Overexertion from strenuous movement or load, initial encounter; Y93.89 Activity, other specified; Y92.007 Garden or yard of unspecified non-institutional (private) residence as the place of occurrence of the external cause

== ENCOUNTER 2020-12-29 | Emergency (ER) | payer OTHER ==
[~2020-12-29] MED LIST changes: +FLEXERIL5 M1 PO; +MEDDOSEPAK PO; +SPIRONOLACTONE25 MG PO; +ULTRAM50 MG PO
[2020-12-29] MEDS ORDERED: LASIX 40 MG TAB40 MG PO (17:42)
[2020-12-29] MEDS ORDERED: WARFARIN SODIU2.5 MG PO (17:42)
[2020-12-29] MEDS ORDERED: CARVEDILOL25 MG PO (17:44)
[2020-12-29] MEDS ORDERED: AMOX/K CLAV875 M1 PO (17:47)
== END 2020-12-29 18:26 | disposition home or self-care (01) ==
DX: S61.254A Open bite of right ring finger without damage to nail, initial encounter (principal); S50.812A Abrasion of left forearm, initial encounter; S50.811A Abrasion of right forearm, initial encounter; S60.511A Abrasion of right hand, initial encounter; I10 Essential (primary) hypertension; I48.91 Unspecified atrial fibrillation; F17.200 Nicotine dependence, unspecified, uncomplicated; W54.0XXA Bitten by dog, initial encounter; Y92.009 Unspecified place in unspecified non-institutional (private) residence as the place of occurrence of the external cause; Z86.73 Personal history of transient ischemic attack (TIA), and cerebral infarction without residual deficits; Z95.2 Presence of prosthetic heart valve; Z79.01 Long term (current) use of anticoagulants

== ENCOUNTER 2021-01-07 13:32 | Emergency (ER) | payer OTHER ==
[~2021-01-07] VITALS: Ht 175.3 cm; Wt 63.0 kg
[~2021-01-07 13:32] MED LIST changes: +AMOX/K CLAV875 M1 PO; +CARVEDILOL25 MG PO; +WARFARIN SODIU2.5 MG PO
[2021-01-07] MEDS ORDERED: LISINOPRIL2.5 MG PO (13:59)
[2021-01-07] MEDS ORDERED: CYCLOBENZAPRINE10 MG PO (14:25)
[2021-01-07] MEDS ORDERED: MEDDOSEPAK PO (14:25)
[2021-01-07] MEDS ORDERED: TRAMADOL HYDROC50 MG PO (14:25)
[2021-01-07 14:32] VITALS: BP 137/72
== END 2021-01-07 14:40 | disposition home or self-care (01) ==
LOC: ED 13:32
DX: M54.32 Sciatica, left side (principal); I10 Essential (primary) hypertension; I48.91 Unspecified atrial fibrillation; F17.210 Nicotine dependence, cigarettes, uncomplicated; Z86.73 Personal history of transient ischemic attack (TIA), and cerebral infarction without residual deficits; Z95.2 Presence of prosthetic heart valve

== ENCOUNTER 2021-08-10 16:43 | Emergency (ER) | payer OTHER ==
[~2021-08-10] VITALS: Ht 175.3 cm; Wt 60.0 kg
[~2021-08-10 16:43] MED LIST changes: +CYCLOBENZAPRINE10 MG PO; +TRAMADOL HYDROC50 MG PO
[2021-08-10] MEDS ORDERED: PREDNISONE50 MG PO (18:16)
[2021-08-10] MEDS ORDERED: CYCLOBENZAPRINE10 MG PO (18:16)
[2021-08-10 18:24] VITALS: BP 138/51
== END 2021-08-10 18:24 | disposition home or self-care (01) ==
LOC: ED 16:43
DX: S39.012A Strain of muscle, fascia and tendon of lower back, initial encounter (principal); I10 Essential (primary) hypertension; I48.91 Unspecified atrial fibrillation; F17.200 Nicotine dependence, unspecified, uncomplicated; X50.0XXA Overexertion from strenuous movement or load, initial encounter; Z95.2 Presence of prosthetic heart valve

== ENCOUNTER 2022-04-29 19:47 | Emergency (ER) | payer OTHER ==
[~2022-04-29] VITALS: Ht 175.3 cm; Wt 63.6 kg
[~2022-04-29 19:47] MED LIST changes: +PREDNISONE50 MG PO
[2022-04-29 20:08] VITALS: BP 150/80
[2022-04-29 20:15] VITALS: BP 140/81
[2022-04-29 20:30] VITALS: BP 138/80
[2022-04-29] MEDS ORDERED: KEFLEX500 MG PO (20:44)
[2022-04-29 20:45] VITALS: BP 136/75
[2022-04-29 20:56] LABS: INTERNATIONAL NORMALIZED RATIO 1.5 RATIO (0.7-1.3); PROTHROMBIN TIME 15.8 SECONDS (9.0-12.5)
[2022-04-29 21:00] VITALS: BP 132/73
[2022-04-29 21:20] VITALS: BP 132/73
== END 2022-04-29 21:20 | disposition home or self-care (01) ==
LOC: ED 19:47
PROVIDERS: Nurse Practitioner
DX: S91.312A Laceration without foreign body, left foot, initial encounter (principal); I10 Essential (primary) hypertension; I48.91 Unspecified atrial fibrillation; F17.200 Nicotine dependence, unspecified, uncomplicated; W25.XXXA Contact with sharp glass, initial encounter; Y93.H9 Activity, other involving exterior property and land maintenance, building and construction; Y92.007 Garden or yard of unspecified non-institutional (private) residence as the place of occurrence of the external cause; Z79.01 Long term (current) use of anticoagulants; Z95.2 Presence of prosthetic heart valve

== ENCOUNTER 2022-08-17 11:26 | Inpatient (IN) | payer OTHER ==
[2022-08-17] VITALS (19 sets, daily range): BP systolic 103–158; BP diastolic 58–108
[~2022-08-17] VITALS: Ht 175.3 cm; Wt 53.6 kg
[~2022-08-17 11:26] MED LIST changes: +KEFLEX500 MG PO
--- NOTE | 2022-08-17 11:26 | NUR ---
PT IN ROOM VIA WHEELCHAIR. C/O SOB
[2022-08-17 12:15] LABS: HEMATOCRIT 36.5 % (39.0-50.0); HEMOGLOBIN 11.5 g/dl (14.0-18.0); IMMATURE GRANULOCYTES 0.1 % (0.0-5.0); MEAN CELL VOLUME 88.2 fL CALC (80.0-100.0); MEAN CORPUSCULAR HGB 27.8 pG CALC (26.0-32.0); MEAN CORPUSCULAR HGB CONC 31.5 g/dL CAL (32.0-36.0); NEUT# 5.56 thou/uL (1.82-7.42); RED BLOOD COUNT 4.14 mill/uL (4.70-6.10); RED CELL DISTRI WIDTH 16.3 % (11.5-15.5)
[2022-08-17 12:28] LABS: ALBUMIN 4.3 g/dL (3.2-5.0); BUN 24 mg/dL (9-20); BUN/CREATININE RATIO 24 (12-20 (CALC)); CHLORIDE 100 mmol/l (95-108); GFR FOR AFR.AMER. > 60 ML/MIN (>=60 (CALC)); GFR OTHER RACES > 60 ML/MIN (>=60 (CALC)); POTASSIUM 4.9 mmol/l (3.5-5.1); SGOT/AST 33 u/l (17-59); SODIUM 136 mmol/l (137-146); TOTAL PROTEIN 6.9 g/dL (6.3-8.2)
[2022-08-17 12:29] LABS: ALKALINE PHOSPHATASE 109 u/l (38-126); ANION GAP 15 (6-22 (CALC)); BILIRUBIN, TOTAL 1.3 mg/dL (0.0-1.4); CARBON DIOXIDE 26 mmol/l (22-30)
--- NOTE | 2022-08-17 12:30 | NUR ---
Reassessment of patient completed. PT IN ROOM SITTING AT THE EDGE OF BED
--- NOTE | 2022-08-17 13:30 | NUR ---
Reassessment of patient completed. PT IN ROOM SITTING IN BED WITH SON BY HIS SIDE
[2022-08-17 13:37] LABS: INTERNATIONAL NORMALIZED RATIO 2.9 RATIO (0.7-1.3); PROTHROMBIN TIME 27.2 SECONDS (9.0-12.5)
--- NOTE | 2022-08-17 14:30 | NUR ---
PT IN ROOM SITTING IN BED Waiting to be admitted to ms
--- NOTE | 2022-08-17 15:28 | NUR ---
Reassessment of patient completed. No distress noted.
--- NOTE | 2022-08-17 16:00 | NUR ---
PT BROUGHT UP FROM THE ED. PT LAYING IN BED ON ROOM AIR. SON IN ROOM. NO FURTHER NEEDS AT THIS TIME.
--- NOTE | 2022-08-17 16:08 | NUR ---
PT TRANSPORTED TO ROOM MS-278 VIA WHEELCHAIR. SON ACCOMPANIED TO ROOM
--- NOTE | 2022-08-17 20:00 | NUR ---
PATIENT UP IN ROOM-STEADY ON HIS FEET. SON IN ROOM WITH PATIENT. PATIENT IS ALERT AND ORIENTEDX3. PATIENT WITH FLAT AFFECT. PATIENT WITH TELE MONITOR IN PLACE. PATIENT WITH HX OF AVR-DOES HAVE CLICK WHEN LISTENING TO HIS APICAL HR. LUNGS ARE CLEAR. SOB WITH ANY EXHERSION. O2 SAT IS 97% ON RA. PATIENT STATES THAT HE IS VOIDING IN THE BR. INSTRUCTED PATIENT TO USE URINAL TO COLLECT URINE FOR ACCURATE I&O. PATIENT IS ON BID LASIX. STATES THAT HE WILL COLLECT IN THE URINE. SALINE LOCK TO LAC INTACT AND HEALTHY WITH GOOD BLOOD RETURN. SAFETY PRECAUTIONS REINFORCED. CALL LIGHT IN REACH. WILL CONT TO MONITOR.
[2022-08-18] VITALS (7 sets, daily range): BP systolic 91–105; BP diastolic 51–62
--- NOTE | 2022-08-18 01:00 | NUR ---
PATIENT RESTING IN BED-EYES ARE CLOSED AND RESPS ARE EVEN AND UNLABORED. URINAL IN BR WITH 500CC OF CLEAR YELLOW URINE IN PLACE. I&O RFECORDED. TELE MONITOR IN PLACE. SALINE LOCK TO LAC INTACT. CALL LIGHT IN REACH. WILL CONT TO MONITOR.
--- NOTE | 2022-08-18 05:00 | NUR ---
RESTING IN BED-POSITIONED ON HIS LEFT SIDE. EYES ARE CLOSED. RESPS ARE EVEN AND UNLABORED. TELE MONITOR IN PLACE. SALINE LOCK TO LAC INTACT. CALL LIGHT IN REACH. WILL CONT TO MONITOR.
[2022-08-18 05:27] LABS: INTERNATIONAL NORMALIZED RATIO 2.6 RATIO (0.7-1.3); PROTHROMBIN TIME 25.1 SECONDS (9.0-12.5)
[2022-08-18 05:38] LABS: ANION GAP 18 (6-22 (CALC)); BUN 37 mg/dL (9-20); BUN/CREATININE RATIO 32 (12-20 (CALC)); CALCULATED LDLCHOLESTEROL 147 mg/dL (62-129 (CALC)); CARBON DIOXIDE 30 mmol/l (22-30); CHLORIDE 95 mmol/l (95-108); CREATININE 1.1 mg/dL (0.7-1.3); GFR FOR AFR.AMER. > 60 ML/MIN (>=60 (CALC)); GFR OTHER RACES > 60 ML/MIN (>=60 (CALC)); HDL CHOLESTEROL 22 mg/dL (>=40); MAGNESIUM 1.9 mg/dL (1.6-2.3); POTASSIUM 4.7 mmol/l (3.5-5.1); SODIUM 138 mmol/l (137-146); TOTAL CHOLESTEROL 189 mg/dl (0-199); TOTAL TRIGLYCERIDES 100 mg/dl (30-149); VLDL CHOLESTROL 20 mg/dl (8-62 (CALC))
--- NOTE | 2022-08-18 07:40 | NUR ---
PT RESTING COMFORTABLY IN BED. VITAL SIGNS STABLE. NO NEEDS AT THIS TIME.
--- NOTE | 2022-08-18 11:55 | NUR ---
PT RESTING COMFORTABLY. VITAL SIGNS STABLE. NO FURTHER NEEDS AT THIS TIME.
--- NOTE | 2022-08-18 16:14 | NUR ---
PT RESTING COMFORTABLY. VSS. NO NEEDS AT THIS TIME.
--- NOTE | 2022-08-18 20:00 | NUR ---
PATIENT RESTING IN BED AT THIS TIME-AWAKE ALERT AND ORIENTEDX3 WITH FAMILY VISITING AT BEDSIDE. URINAL FULL IN BR AND EMPTIED FOR 2000CC OF EMILY URINE-NO I&O RECORDED FROM DAYSHIFT.PATIENT WILL CONT TO COLLECT URINE IN URINAL IN URINAL IN BR. PATIENT STATES THAT HE DID HAVE BM TODAY. LUNGS ARE CLEAR-SLIGHTLY DIMINISHED IN THE BASES. O2 ANTOINETTE ARE 96% ON RA. NO PERIPHERAL EDEMA NOTED. SALINE LOCK TO LAC INTACT AND HEALTHY AT THIS ITME. SAFETY PRECAUTIONS REINFORCED. CALL LIGHT IN REACH. WILL CONT TO MONITOR.
[2022-08-19 00:04] VITALS: BP 99/55
[2022-08-19 00:05] VITALS: BP 98/60
--- NOTE | 2022-08-19 00:26 | NUR ---
PATIENT RESTING IN BED AT THIS TIME-AWAKE ALERT AND ORIENTEDX3 WITH FAMILY AT BEDSIDE. NO COMPLAINTS AT THIS TIME. URINAL FULL IN BR AND EMPTIED FOR 2000CC OF EMILY URINE. NO I&O RECORDED FROM DAYSHIFT. PATIENT WILL CONT TO COLLECT URINE IN URINAL IN BR. PATIENT STATES THAT HE DID HAVE BM TODAY. LUNGS ARE CLEAR-SLIGHTLY DIMINISHED IN THE BASES. TELE MONITOR IN PLACE WITH LAST READING SR-70'S. O2 SATS ARE 96% ON RA. NO PERIPHERAL EDEMA NOTED. SALINE LOCK TO LAC INTACT AND HEALTHY AT THIS TIME. SAFETY PRECAUTIONS REINFORCED. CALL LIGHT IN REACH. WILL CONT TO MONITOR.
--- NOTE | 2022-08-19 00:35 | NUR ---
PATIENT RESTING IN BED WITH EYES CLOSED. RESPS ARE EVEN AND UNLABORED. TELE MONITOR IN PLACE. CALL LIGHT IN REACH. WILL CONT TO MONITOR.
--- NOTE | 2022-08-19 04:22 | NUR ---
PATIENT RESTING IN BED AT THIS TIME WITH EYES CLOSED. RESPS ARE EVEN AND UNLABORED. TELE MONITOR IN PLACE. SALINE LOCK TO LAC INTACT. CALL LIGHT IN REACH. WILL CONT TO MONITOR.
[2022-08-19 05:03] LABS: HEMOGLOBIN 10.8 g/dl (14.0-18.0); MEAN CELL VOLUME 87.9 fL CALC (80.0-100.0); MEAN CORPUSCULAR HGB 27.9 pG CALC (26.0-32.0); MEAN CORPUSCULAR HGB CONC 31.8 g/dL CAL (32.0-36.0); RED BLOOD COUNT 3.87 mill/uL (4.70-6.10); RED CELL DISTRI WIDTH 16.2 % (11.5-15.5)
[2022-08-19 05:06] VITALS: BP 98/66
[2022-08-19 05:09] LABS: ANION GAP 10 (6-22 (CALC)); BUN 35 mg/dL (9-20); BUN/CREATININE RATIO 34 (12-20 (CALC)); CARBON DIOXIDE 31 mmol/l (22-30); CHLORIDE 97 mmol/l (95-108); GFR FOR AFR.AMER. > 60 ML/MIN (>=60 (CALC)); GFR OTHER RACES > 60 ML/MIN (>=60 (CALC)); INTERNATIONAL NORMALIZED RATIO 2.2 RATIO (0.7-1.3); MAGNESIUM 2.1 mg/dL (1.6-2.3); POTASSIUM 3.9 mmol/l (3.5-5.1); PROTHROMBIN TIME 20.8 SECONDS (9.0-12.5); SODIUM 135 mmol/l (137-146)
[2022-08-19 06:47] VITALS: BP 98/66
--- NOTE | 2022-08-19 07:53 | NUR ---
CHANGE OF SHIFT REPORT IN PROGRESS, PT SLEEPING, BREATHING EVEN AND NON-LABORED, NO SIGN DISCOMFORT AT THIS TIME, CALL LUNA IN REACH AND BED LOCKED IN LOWEST POSITION.
[2022-08-19 09:23] VITALS: BP 117/68
[2022-08-19 09:26] VITALS: BP 117/68
[2022-08-19] MEDS ORDERED: WARFARIN SODIUM5 MG PO (12:57)
[2022-08-19] MEDS ORDERED: CARVEDILOL25 MG PO (12:57)
[2022-08-19] MEDS ORDERED: LISINOPRIL2.5 MG PO (12:57)
[2022-08-19] MEDS ORDERED: LASIX 20 MG TAB20 MG PO (12:57)
--- NOTE | 2022-08-19 13:22 | NUR ---
INFORMED OF ECHO PROCEDURE, BEING TRANSPORTED OFF UNIT AT THIS TIME VIA W/C TO PROCEDURE.
--- NOTE | 2022-08-19 16:51 | NUR ---
Discharge instructions given. Patient verbalizes understanding of same. Discharged in stable condition via Wheelchair to Home with *Other. All belongings sent with pt.
== END 2022-08-19 16:49 | disposition home or self-care (01) | DRG 291 ==
LOC: ED 11:26 → ED-I 13:10 → ED 13:20 → MS2 13:21
PROVIDERS: Family Medicine; ADMIT Internal Medicine; ATTEND Internal Medicine
DX: I11.0 Hypertensive heart disease with heart failure (principal); I50.23 Acute on chronic systolic (congestive) heart failure; I48.91 Unspecified atrial fibrillation; I25.10 Atherosclerotic heart disease of native coronary artery without angina pectoris; T50.1X6A Underdosing of loop [high-ceiling] diuretics, initial encounter; T50.0X6A Underdosing of mineralocorticoids and their antagonists, initial encounter; T44.7X6A Underdosing of beta-adrenoreceptor antagonists, initial encounter; I25.2 Old myocardial infarction; F17.210 Nicotine dependence, cigarettes, uncomplicated; Z91.128 Patient's intentional underdosing of medication regimen for other reason; Z86.73 Personal history of transient ischemic attack (TIA), and cerebral infarction without residual deficits; Z91.199 Patient's noncompliance with other medical treatment and regimen due to unspecified reason; Z95.2 Presence of prosthetic heart valve; Z79.01 Long term (current) use of anticoagulants; Z20.822 Contact with and (suspected) exposure to COVID-19

== ENCOUNTER 2022-08-25 13:34 | Emergency (ER) | payer OTHER ==
[~2022-08-25] VITALS: Ht 175.3 cm; Wt 54.5 kg
[2022-08-25] VITALS (8 sets, daily range): BP systolic 100–125; BP diastolic 50–73
[~2022-08-25 13:34] MED LIST changes: +LASIX 20 MG TAB20 MG PO; +WARFARIN SODIUM5 MG PO
[2022-08-25 14:08] LABS: HEMATOCRIT 35.4 % (39.0-50.0); HEMOGLOBIN 11.1 g/dl (14.0-18.0); IMMATURE GRANULOCYTES 0.5 % (0.0-5.0); MEAN CORPUSCULAR HGB 27.3 pG CALC (26.0-32.0); MEAN CORPUSCULAR HGB CONC 31.4 g/dL CAL (32.0-36.0); NEUT# 4.45 thou/uL (1.82-7.42); RED BLOOD COUNT 4.07 mill/uL (4.70-6.10); RED CELL DISTRI WIDTH 16.4 % (11.5-15.5)
[2022-08-25] MEDS ORDERED: SYMBICORT1 AE1 IN (14:12)
[2022-08-25 14:22] LABS: ALBUMIN 3.9 g/dL (3.2-5.0); ALKALINE PHOSPHATASE 155 u/l (38-126); ANION GAP 11 (6-22 (CALC)); BUN 27 mg/dL (9-20); BUN/CREATININE RATIO 22 (12-20 (CALC)); CARBON DIOXIDE 31 mmol/l (22-30); CHLORIDE 96 mmol/l (95-108); CREATININE 1.2 mg/dL (0.7-1.3); GFR FOR AFR.AMER. > 60 ML/MIN (>=60 (CALC)); GFR OTHER RACES > 60 ML/MIN (>=60 (CALC)); LIPASE 32 u/l (23-300); POTASSIUM 4.5 mmol/l (3.5-5.1); SGOT/AST 56 u/l (17-59); SODIUM 133 mmol/l (137-146); TOTAL PROTEIN 6.5 g/dL (6.3-8.2)
[2022-08-25 14:28] LABS: BILIRUBIN, TOTAL 0.6 mg/dL (0.0-1.4); INTERNATIONAL NORMALIZED RATIO 2.9 RATIO (0.7-1.3); PROTHROMBIN TIME 27.2 SECONDS (9.0-12.5)
[2022-08-25 14:34] LABS: MYOGLOBIN 54 ng/mL (0 - 121)
[2022-08-25 15:07] LABS: URINE BILIRUBIN - DIPSTICK NEGATIVE (NEGATIVE); URINE BLOOD DIPSTICK SMALL (NEGATIVE); URINE COLOR YELLOW; URINE GLUCOSE - DIPSTICK NEGATIVE (NEGATIVE); URINE KETONE NEGATIVE (NEGATIVE); URINE LEUK ESTERASE NEGATIVE (NEGATIVE); URINE PH 6.5 (4.5-8.0); URINE PROTEIN - DIPSTICK 30 mg/dL (NEG-TRACE); URINE SPECIFIC GRAVITY 1.015; URINE UROBILINOGEN - DIPSTICK 0.2 E.U./dL (0.2)
[2022-08-25 15:14] LABS: URINE EPITHELIAL CELLS FEW EPI/hpf (0-FEW); URINE MUCUS MODERATE hpf (NONE-FEW); URINE NITRITE - DIPSTICK NEGATIVE (Negative); URINE RBC 0-2 RBC/hpf (0-5)
[2022-08-25] MEDS ORDERED: FLEXERIL5 M1 PO (15:26)
[2022-08-25] MEDS ORDERED: ZPAK PO (15:26)
[2022-08-25] MEDS ORDERED: PREDNISONE10 MG PO (15:26)
== END 2022-08-25 15:41 | disposition home or self-care (01) ==
LOC: ED 13:34
PROVIDERS: Nurse Practitioner
DX: J44.9 Chronic obstructive pulmonary disease, unspecified (principal); I11.0 Hypertensive heart disease with heart failure; I50.9 Heart failure, unspecified; E11.9 Type 2 diabetes mellitus without complications; I42.9 Cardiomyopathy, unspecified; F17.210 Nicotine dependence, cigarettes, uncomplicated

== ENCOUNTER 2022-11-13 00:07 | Emergency (ER) | payer OTHER ==
[~2022-11-13] VITALS: Ht 175.3 cm; Wt 63.6 kg
[~2022-11-13 00:07] MED LIST changes: +PREDNISONE10 MG PO; +SYMBICORT1 AE1 IN; +ZPAK PO
[2022-11-13 00:26] VITALS: BP 135/65
[2022-11-13 00:30] VITALS: BP 140/67
[2022-11-13 00:46] VITALS: BP 112/85
[2022-11-13 01:01] VITALS: BP 112/85; BP 136/69
== END 2022-11-13 01:10 | disposition home or self-care (01) ==
LOC: ED 00:07
DX: S91.302A Unspecified open wound, left foot, initial encounter (principal); E11.9 Type 2 diabetes mellitus without complications; I10 Essential (primary) hypertension; I42.9 Cardiomyopathy, unspecified; F17.200 Nicotine dependence, unspecified, uncomplicated; X58.XXXA Exposure to other specified factors, initial encounter; Z79.01 Long term (current) use of anticoagulants

== ENCOUNTER 2022-12-28 17:40 | Emergency (ER) | payer OTHER ==
[~2022-12-28] VITALS: Ht 175.3 cm; Wt 58.0 kg
[2022-12-28] MEDS ORDERED: SILVADENE1 % EX (19:08)
[2022-12-28] MEDS ORDERED: TRAMADOL HYDROC50 M1 PO (19:08)
[2022-12-28 19:33] VITALS: BP 136/68
== END 2022-12-28 19:42 | disposition home or self-care (01) ==
LOC: ED 17:40
DX: T23.221A Burn of second degree of single right finger (nail) except thumb, initial encounter (principal); T31.0 Burns involving less than 10% of body surface; E11.9 Type 2 diabetes mellitus without complications; I10 Essential (primary) hypertension; I42.9 Cardiomyopathy, unspecified; F17.200 Nicotine dependence, unspecified, uncomplicated; X03.8XXA Other exposure to controlled fire, not in building or structure, initial encounter

== ENCOUNTER 2023-01-08 16:43 | Emergency (ER) | payer OTHER ==
[~2023-01-08] VITALS: Ht 175.3 cm; Wt 167.0 kg
[~2023-01-08 16:43] MED LIST changes: +SILVADENE1 % EX; +TRAMADOL HYDROC50 M1 PO
[2023-01-08] MEDS ORDERED: AMOX/K CLAV875 M1 PO (17:03)
[2023-01-08] MEDS ORDERED: TRAMADOL HYDROC50 M1 PO (18:29)
[2023-01-08 18:35] VITALS: BP 142/70
== END 2023-01-08 18:53 | disposition home or self-care (01) ==
LOC: ED 16:43
DX: S61.551A Open bite of right wrist, initial encounter (principal); S61.051A Open bite of right thumb without damage to nail, initial encounter; I10 Essential (primary) hypertension; E11.9 Type 2 diabetes mellitus without complications; I42.9 Cardiomyopathy, unspecified; F17.200 Nicotine dependence, unspecified, uncomplicated; W54.0XXA Bitten by dog, initial encounter; Y93.89 Activity, other specified; Y92.007 Garden or yard of unspecified non-institutional (private) residence as the place of occurrence of the external cause

== ENCOUNTER 2023-11-07 21:51 | Observation (INO) | payer SELFPAY ==
[~2023-11-07] VITALS: Ht 175.3 cm; Wt 53.2 kg
[2023-11-07 22:16] VITALS: BP 156/91
[2023-11-07] MEDS ORDERED: LISINOPRIL2.5 MG PO (22:27)
[2023-11-07] MEDS ORDERED: FLEXERIL5 M1 PO (22:28)
[2023-11-07] MEDS ORDERED: JANTOVEN5 MG PO (22:29)
[2023-11-07] MEDS ORDERED: PREDNISONE10 MG PO (22:29)
[2023-11-07 22:39] LABS: BASO% 0.7 % (0-3); EOS% 0.7 % (0-8); HEMATOCRIT 41.3 % (39.0-50.0); IMMATURE GRANULOCYTES 0.1 % (0.0-5.0); LYMPH% 20.7 % (15-41); MEAN CORPUSCULAR HGB 29.8 pG CALC (26.0-32.0); MEAN CORPUSCULAR HGB CONC 32.2 g/dL CAL (32.0-36.0); MONO% 13.4 % (2-13); NEUT# 4.82 thou/uL (1.82-7.42); NEUT% 64.4 % (42-76); RED BLOOD COUNT 4.47 mill/uL (4.70-6.10); RED CELL DISTRI WIDTH 15.4 % (11.5-15.5)
[2023-11-07 22:42] LABS: HEMOGLOBIN 13.3 g/dl (14.0-18.0); MEAN CELL VOLUME 92.4 fL CALC (80.0-100.0)
[2023-11-07 23:00] VITALS: BP 147/92
[2023-11-07 23:08] LABS: URINE BILIRUBIN - DIPSTICK Negative (NEGATIVE); URINE BLOOD DIPSTICK Trace-lysed (NEGATIVE); URINE GLUCOSE - DIPSTICK Negative (NEGATIVE); URINE KETONE Negative (NEGATIVE); URINE LEUK ESTERASE Negative (NEGATIVE); URINE NITRITE - DIPSTICK Negative (Negative); URINE PH 5.5 (4.5-8.0); URINE PROTEIN - DIPSTICK 100 mg/dL (NEG-TRACE); URINE SPECIFIC GRAVITY >=1.030
[2023-11-07 23:09] LABS: D-DIMER 1.71 mg/L (0.19-0.60)
[2023-11-07 23:12] LABS: URINE COLOR Yellow
[2023-11-07 23:21] LABS: URINE BACTERIA FEW hpf; URINE MUCUS FEW hpf (NONE-FEW); URINE SQUAMOUS EPITHELIAL CELL FEW EPI/hpf (0-FEW)
[2023-11-07 23:33] LABS: ALBUMIN 4.2 g/dL (3.2-5.0); ALKALINE PHOSPHATASE 90 u/l (38-126); ANION GAP 12 (6-22 (CALC)); BUN 34 mg/dL (9-20); BUN/CREATININE RATIO 26 (12-20 (CALC)); CARBON DIOXIDE 25 mmol/l (22-30); CHLORIDE 103 mmol/l (95-108); CREATININE 1.3 mg/dL (0.7-1.3); GFR FOR AFR.AMER. > 60 ML/MIN (>=60 (CALC)); GFR OTHER RACES 57 ML/MIN (>=60 (CALC)); POTASSIUM 4.4 mmol/l (3.5-5.1); SGOT/AST 56 u/l (17-59); SODIUM 136 mmol/l (137-146); TOTAL PROTEIN 6.9 g/dL (6.3-8.2)
[2023-11-07 23:34] LABS: BILIRUBIN, TOTAL 1.4 mg/dL (0.2-1.3)
[2023-11-07 23:38] LABS: INTERNATIONAL NORMALIZED RATIO 1.6 RATIO (0.7-1.3)
[2023-11-08] VITALS (10 sets, daily range): BP systolic 128–151; BP diastolic 60–121
[2023-11-08 08:58] LABS: BASO% 0.8 % (0-3); EOS% 0.8 % (0-8); HEMATOCRIT 38.9 % (39.0-50.0); HEMOGLOBIN 12.9 g/dl (14.0-18.0); LYMPH% 18.8 % (15-41); MEAN CORPUSCULAR HGB 29.9 pG CALC (26.0-32.0); MEAN CORPUSCULAR HGB CONC 33.2 g/dL CAL (32.0-36.0); MONO% 14.2 % (2-13); NEUT# 4.27 thou/uL (1.82-7.42); NEUT% 65.4 % (42-76); RED BLOOD COUNT 4.32 mill/uL (4.70-6.10)
[2023-11-08 09:17] LABS: ALKALINE PHOSPHATASE 104 u/l (38-126); ANION GAP 10 (6-22 (CALC)); BILIRUBIN, TOTAL 1.3 mg/dL (0.2-1.3); BUN 32 mg/dL (9-20); BUN/CREATININE RATIO 28 (12-20 (CALC)); CALCULATED LDLCHOLESTEROL 136 mg/dL (62-129 (CALC)); CHLORIDE 97 mmol/l (95-108); CHOLESTEROL HDL RATIO 12.6 (<4.4 (CALC)); CREATININE 1.1 mg/dL (0.7-1.3); GFR FOR AFR.AMER. > 60 ML/MIN (>=60 (CALC)); GFR OTHER RACES > 60 ML/MIN (>=60 (CALC)); HDL CHOLESTEROL 15 mg/dL (39.0-59.0); MAGNESIUM 1.6 mg/dL (1.6-2.3); POTASSIUM 3.7 mmol/l (3.5-5.1); SGOT/AST 48 u/l (17-59); SODIUM 135 mmol/l (137-146); TOTAL CHOLESTEROL 183 mg/dl (0-199); TOTAL PROTEIN 6.4 g/dL (6.3-8.2); TOTAL TRIGLYCERIDES 165 mg/dl (0-149); VLDL CHOLESTROL 33 mg/dl (8-62 (CALC))
[2023-11-08 09:24] LABS: CARBON DIOXIDE 32 mmol/l (22-30)
[2023-11-08] MEDS ORDERED: JANTOVEN5 MG PO (14:57)
[2023-11-08] MEDS ORDERED: LASIX 40 MG TAB40 MG PO (14:57)
== END 2023-11-08 20:38 | disposition home or self-care (01) | DRG 291 ==
LOC: ED 21:51 → ED-I 22:38 → ED 11-08 04:46 → MS2 11-08 04:47
PROVIDERS: Emergency Medicine; ADMIT Student in an Organized Health Care Education/Training Program; ATTEND Student in an Organized Health Care Education/Training Program
DX: I11.0 Hypertensive heart disease with heart failure (principal); I50.23 Acute on chronic systolic (congestive) heart failure; E11.9 Type 2 diabetes mellitus without complications; J44.9 Chronic obstructive pulmonary disease, unspecified; I25.10 Atherosclerotic heart disease of native coronary artery without angina pectoris; I71.21 Aneurysm of the ascending aorta, without rupture; F17.200 Nicotine dependence, unspecified, uncomplicated; I25.2 Old myocardial infarction; T50.1X6A Underdosing of loop [high-ceiling] diuretics, initial encounter; Z91.120 Patient's intentional underdosing of medication regimen due to financial hardship; Z86.73 Personal history of transient ischemic attack (TIA), and cerebral infarction without residual deficits; Z79.01 Long term (current) use of anticoagulants; Z95.2 Presence of prosthetic heart valve; Z95.1 Presence of aortocoronary bypass graft; Z20.822 Contact with and (suspected) exposure to COVID-19
CPT/HCPCS: G0378; Q9967

== ENCOUNTER 2024-09-22 21:05 | Emergency (ER) | payer SELFPAY ==
[~2024-09-22] VITALS: Ht 175.3 cm; Wt 61.0 kg
[2024-09-22] VITALS (8 sets, daily range): BP systolic 126–155; BP diastolic 71–87
[~2024-09-22 21:05] MED LIST changes: +BACTRIM DS1 TAB PO; +FUROSEMIDE20 MG PO; +JANTOVEN5 MG PO; +WARFARIN5 MG PO
[2024-09-22] MEDS ORDERED: CLINDAMYCIN300 M1 PO (23:26)
== END 2024-09-22 23:51 | disposition home or self-care (01) | DRG 638 ==
LOC: ED 21:05
DX: E10.621 Type 1 diabetes mellitus with foot ulcer (principal); L97.529 Non-pressure chronic ulcer of other part of left foot with unspecified severity; I10 Essential (primary) hypertension; I42.9 Cardiomyopathy, unspecified; I25.10 Atherosclerotic heart disease of native coronary artery without angina pectoris; F17.200 Nicotine dependence, unspecified, uncomplicated; Z95.2 Presence of prosthetic heart valve